=== PATIENT | female | born 1965 | race Caucasian/White ===

== ENCOUNTER 2021-09-21 13:39 | Outpatient (CLI) | payer OTHER ==
[2021-09-21 15:25] LABS: Mean Corpuscular HGB CONC 32.2 g/dL (32.0-36.0); Mean Corpuscular Volume 87.1 fl (81.6-98.3); Mean Platelet Volume 8.9 fl (7.4-10.4); Platelet Count 292 10x3/uL (150-450); RBC Distribution Width 13.5 % (11.5-14.5); Red Blood Cell (RBC) Count 4.64 10x6/uL (3.90-5.03)
[2021-09-21 15:53] LABS: Anion Gap 12 mmol/L (10-20); BUN (Urea Nitrogen) 18 mg/dL (9.8-20.1); Calc. Creatinine Clearance 0 mL/min (70-130); Calcium 9.2 mg/dL (7.8-10.44); Carbon Dioxide 27 mmol/L (22-29); Chloride 105 mmol/L (98-107); Glucose 96 mg/dL (70-105); Potassium 3.7 mmol/L (3.5-5.1); Sodium 140 mmol/L (136-145)
[2021-09-22 01:03] LABS: SARS-CoV-2 PCR by NAA Not Detected (NotDetected)
== END 2021-09-21 13:40 | disposition home or self-care (01) ==
LOC: LABBT 13:39
PROVIDERS: ATTEND Neurological Surgery
DX: Z01.818 Encounter for other preprocedural examination (principal); Z20.822 Contact with and (suspected) exposure to COVID-19
CPT/HCPCS: 80048; 85027; 93005; 93010; U0003; U0005

== ENCOUNTER 2021-09-26 06:52 | Day surgery (SDC) | payer OTHER ==
[2021-09-22 16:11] VITALS: BMI 29.0
[2021-09-26] MEDS ORDERED: ceFAZolin 2 GM/DEX 5% 100 ML BAG ONE ×2 (08:23→13:25)
[2021-09-26] MEDS ORDERED: HYDROmorphone 0.5 MG/0.5 ML SYRINGE ONE ×2 (09:02→11:01)
[2021-09-26] MEDS ORDERED: Fentanyl 100 MCG/2 ML VIAL ONE ×4 (09:02→11:56)
[2021-09-26] MEDS ORDERED: Dexamethasone 20 MG/5 ML VIAL ONE (09:12)
[2021-09-26] MEDS ORDERED: Glycopyrrolate 0.2 MG/ML 5 ML SYRINGE ONE (09:12)
[2021-09-26] MEDS ORDERED: PROPOFOL 200 MG/20 ML VIAL ONE (09:12)
[2021-09-26] MEDS ORDERED: Lidocaine 1% PF 5 ML VIAL ONE (09:12)
[2021-09-26] MEDS ORDERED: ePHEDrine 50 MG/ML VIAL ONE (09:12)
[2021-09-26] MEDS ORDERED: Phenylephrine 10 MG/ML VIAL ONE (09:12)
[2021-09-26] MEDS ORDERED: Ondansetron PF 4 MG/2 ML Vial ONE (09:12)
[2021-09-26] MEDS ORDERED: Rocuronium Bromide 10 MG/ML (10ML VIAL) ONE (09:12)
[2021-09-26] MEDS ORDERED: Ketorolac Tromethamine 30 MG/ML VIAL ONE (09:12)
[2021-09-26] MEDS ORDERED: oxyCODONE/Acetaminophen 5 mg/325 mg Tablet PO PRN (13:13)
[2021-09-26] MEDS ORDERED: traMADol HCl 50 MG TAB PO PRN ×2 (13:15)
[2021-09-26] MEDS ORDERED: Prochlorperazine 10 MG/2 ML VIAL IM PRN (13:15)
[2021-09-26] MEDS ORDERED: Ondansetron PF 4 MG/2 ML Vial IVP PRN (13:15)
[2021-09-26] MEDS ORDERED: Sodium Chloride 0.9% 1,000 ML IV SCH (13:15)
[2021-09-26] MEDS ORDERED: Mag-Al 1200 mg/1200 mg/30 ML UDCUP PO PRN (13:15)
[2021-09-26] MEDS ORDERED: tiZANidine HCl 4 MG TAB PO PRN (13:15)
[2021-09-26] MEDS ORDERED: diphenhydrAMINE 50 MG/ML VIAL IVP PRN (13:15)
[2021-09-26] MEDS ORDERED: Morphine 4 MG/ML VIAL SLOW IVP PRN (13:15)
[2021-09-26] MEDS ORDERED: Morphine 2 MG/ML VIAL SLOW IVP PRN (13:15)
[2021-09-26] MEDS ORDERED: diphenhydrAMINE 25 MG CAP PO PRN (13:15)
[2021-09-26] MEDS ORDERED: ceFAZolin Sodium/D5W 2 GM in Premix Bag 1 BAG IVPB SCH (17:00)
== END 2021-09-26 14:25 | disposition home or self-care (01) ==
LOC: SDC 06:52
PROVIDERS: ATTEND Neurological Surgery
PROC: 0RG20A0 Fusion of 2 or more Cervical Vertebral Joints with Interbody Fusion Device, Anterior Approach, Anterior Column, Open Approach (ICD-10-PCS; principal; 2021-09-26)
DX: M50.11 Cervical disc disorder with radiculopathy, high cervical region (principal); I10 Essential (primary) hypertension; I73.9 Peripheral vascular disease, unspecified; G89.4 Chronic pain syndrome; Z79.899 Other long term (current) drug therapy
CPT/HCPCS: 76000; C1713; C1776; J1100; J1170; J1885; J2370; J2405; J2704; J3010; J3490

== ENCOUNTER 2021-10-17 08:39 | Outpatient (CLI) | payer OTHER | END 2021-10-17 08:40 | disposition home or self-care (01) | LOC: TBSIIMAG 08:39 | PROVIDERS: ATTEND Neurological Surgery | DX: M47.22 Other spondylosis with radiculopathy, cervical region (principal); Z98.1 Arthrodesis status; Z98.890 Other specified postprocedural states | CPT/HCPCS: 72040 ==

== ENCOUNTER 2023-07-16 07:51 | Inpatient (IN) | payer OTHER ==
[2023-07-16 09:28] LABS: #Eosinphils 0.3 thou/uL (0.0-0.7); #Monocytes 0.5 thou/uL (0.11-0.59); #Neutrophils 2.1 thou/uL (1.40-6.50); %Basophils 0.9 % (0.0-1.0); %Eosinophils 7.2 % (0.0-10.0); %Monocytes 11.9 % (0.0-10.0); %Neutrophils 45.8 % (42.0-75.0); Hematocrit 40.3 % (36.0-47.0); Hemoglobin 13.4 g/dL (12.0-16.0); Mean Corpuscular HGB CONC 33.3 g/dL (32.0-36.0); Mean Corpuscular Hemoglobin 28.6 pg (27.0-31.0); Mean Corpuscular Volume 85.9 fl (78.0-98.0); Mean Platelet Volume 8.6 fL (7.4-10.4); Platelet Count 247 10x3/uL (130-400); RBC Distribution Width 12.5 % (11.5-14.5); Red Blood Cell (RBC) Count 4.69 mill/uL (4.20-5.40); White Blood Cell (WBC) Count 4.5 10x3/uL (4.8-10.8)
[2023-07-16 09:49] LABS: Anion Gap 11 mmol/L (10-20); BUN (Urea Nitrogen) 10 mg/dL (9.8-20.1); Calc. Creatinine Clearance 99 mL/min (70-130); Calcium 9.4 mg/dL (7.8-10.44); Carbon Dioxide 31 mmol/L (22-29); Chloride 98 mmol/L (98-107); Estimated GFR 100; Glucose 90 mg/dL (70-105); Potassium 3.9 mmol/L (3.5-5.1); Sodium 136 mmol/L (136-145)
[2023-07-16] MEDS ORDERED: Scopolamine 1.5 mg/72 hour Patch ONE (10:16)
[2023-07-16] MEDS ORDERED: fentaNYL 50 mcg/mL 1 mL Vial ONE ×2 (10:16)
[2023-07-16] MEDS ORDERED: fentaNYL PF 100 MCG/2 ML SYRINGE ONE (12:24)
[2023-07-16] MEDS ORDERED: Sodium Chloride 0.9% 100 ML ONE (13:12)
[2023-07-16] MEDS ORDERED: CEFAZOLIN 2 GM VIAL ONE (13:12)
[2023-07-16] MEDS ORDERED: PROPOFOL 200 MG/20 ML VIAL ONE (13:39)
[2023-07-16] MEDS ORDERED: Rocuronium Bromide 10 MG/ML (10ML VIAL) ONE (13:39)
[2023-07-16] MEDS ORDERED: ePHEDrine Sulfate 50 MG/10 ML VIAL ONE (13:39)
[2023-07-16] MEDS ORDERED: Dexamethasone 20 MG/5 ML VIAL ONE (13:39)
[2023-07-16] MEDS ORDERED: Lidocaine 1% PF 5 ML VIAL ONE (13:39)
[2023-07-16] MEDS ORDERED: Ondansetron PF 4 MG/2 ML Vial ONE (13:39)
[2023-07-16] MEDS ORDERED: PHENYLEPHRINE-NS 100 MCG/ML 10 ML SYRINGE ONE (13:39)
[2023-07-16] MEDS ORDERED: Succinylcholine 200 MG/10 ml SYRINGE FS ONE (14:24)
[2023-07-16] MEDS ORDERED: SUGAMMADEX SODIUM 200 MG/2 ML VIAL ONE (14:25)
[2023-07-16] MEDS ORDERED: Mag-Al 1200 mg/1200 mg/30 ML UDCUP PO PRN (14:26)
[2023-07-16] MEDS ORDERED: Ondansetron PF 4 MG/2 ML Vial IVP PRN (14:26)
[2023-07-16] MEDS ORDERED: diphenhydrAMINE 50 MG/ML VIAL IVP PRN (14:26)
[2023-07-16] MEDS ORDERED: Milk Of Magnesia 30 ML UDCUP PO PRN (14:26)
[2023-07-16] MEDS ORDERED: Methocarbamol 500 MG TAB PO PRN (14:28)
[2023-07-16] MEDS ORDERED: oxyCODONE/Acetaminophen 5 mg/325 mg Tablet PO PRN (14:29)
[2023-07-16] MEDS ORDERED: Promethazine HCl 25 MG/ML VIAL IM PRN (14:41)
[2023-07-16] MEDS ORDERED: Ondansetron HCl/PF 4 MG/2 ML Vial IVP PRN (14:41)
[2023-07-16] MEDS ORDERED: Fentanyl 250 MCG/5 ML VIAL ONE (14:47)
[2023-07-16] MEDS: Sodium Chloride 0.9% 1,000 ML IV SCH (17:10)
[2023-07-16] MEDS: Gabapentin 400 MG CAP PO SCH ×2 (17:10→20:09)
[2023-07-16] MEDS: oxyCODONE/Acetaminophen 5 mg/325 mg Tablet PO PRN ×2 (17:10→21:32)
[2023-07-16 17:26] VITALS: BMI 29.4
[2023-07-16] MEDS: Morphine 2 MG/ML VIAL SLOW IVP PRN (19:00)
[2023-07-16] MEDS ORDERED: BUPRENORPHINE 150 MCG SL SCH (21:00)
[2023-07-16] MEDS: CEFAZOLIN 2 GM in Sodium Chloride 0.9% 100 ML IVPB SCH (21:32)
[2023-07-17] MEDS: Sodium Chloride 0.9% 1,000 ML IV SCH (03:03)
[2023-07-17 05:08] VITALS: BP 171/83; TEMP 97.4
[2023-07-17] MEDS: CEFAZOLIN 2 GM in Sodium Chloride 0.9% 100 ML IVPB SCH (05:10)
[2023-07-17] MEDS: oxyCODONE/Acetaminophen 5 mg/325 mg Tablet PO PRN (05:24)
[2023-07-17] MEDS: Morphine 2 MG/ML VIAL SLOW IVP PRN (08:47)
[2023-07-17] MEDS: Gabapentin 400 MG CAP PO SCH (08:49)
[2023-07-17] MEDS ORDERED: Hydrochlorothiazide 25 MG TAB PO SCH (09:00)
[2023-07-17] MEDS ORDERED: Meloxicam 15 MG TAB PO SCH (09:00)
[2023-07-17] MEDS ORDERED: DULoxetine 60 MG CAP PO SCH (09:00)
[2023-07-17] MEDS ORDERED: Multivit, Therapeutic 1 TAB PO SCH (09:00)
[2023-07-17] MEDS ORDERED: Sertraline 100 MG TAB PO SCH (09:00)
[2023-07-17] MEDS ORDERED: Docusate 100 MG CAP PO SCH (09:00)
== END 2023-07-17 11:31 | disposition home or self-care (01) | DRG 517 ==
LOC: SURG A 07:51 → T4-B 16:58
PROVIDERS: ADMIT Neurological Surgery; ATTEND Neurological Surgery
PROC: 0RP10AZ Removal of Interbody Fusion Device from Cervical Vertebral Joint, Open Approach (ICD-10-PCS; principal; 2023-07-16)
PROC: 3E033XZ Introduction of Vasopressor into Peripheral Vein, Percutaneous Approach (ICD-10-PCS; 2023-07-16)
DX: T84.226A Displacement of internal fixation device of vertebrae, initial encounter (principal); M54.12 Radiculopathy, cervical region; M47.812 Spondylosis without myelopathy or radiculopathy, cervical region; R13.10 Dysphagia, unspecified; M54.2 Cervicalgia; G89.29 Other chronic pain; Z98.1 Arthrodesis status; Z79.899 Other long term (current) drug therapy
CPT/HCPCS: 80048; 85025; 93005; 93010; C1713; J1100; J2272; J2405; J2704; J3010; J3490; J7050